=== PATIENT | female | born 1965 | race Caucasian/White ===

== ENCOUNTER 2018-08-23 11:59 | Outpatient (CLI) | payer BC ==
--- NOTE | 2018-08-23 12:31 | RAD ---
RIGHT HIP 2 VIEWS: HISTORY: Right hip pain. FINDINGS AND IMPRESSION: Mild degenerative changes right hip joint. No fracture, dislocation, or other acute process. POS: [facility]
== END 2018-08-23 12:00 | disposition home or self-care (01) ==
LOC: RAD 11:59
PROVIDERS: ATTEND Nurse Practitioner Family
DX: M25.551 Pain in right hip (principal); M16.11 Unilateral primary osteoarthritis, right hip

== ENCOUNTER 2018-08-31 10:22 | Outpatient (CLI) | payer BC ==
--- NOTE | 2018-08-31 14:04 | CT ---
CT OF THE RIGHT HIP WITHOUT CONTRAST: INDICATION: Sharp stabbing right hip pain. COMPARISON: Right hip radiograph dated 08/23/2018. FINDINGS: No acute fracture or subluxation is evident. There is mild enthesopathic change off the posterior ra diotrochanter. There is mild degenerative change of the right hip. No lymphadenopathy is evident. There are scattered calcifications within the adjacent soft tissues. IMPRESSION: 1. No acute osseous abnormality is demonstrated. 2. 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 3. 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 POS: [facility]
== END 2018-08-31 10:23 | disposition home or self-care (01) ==
LOC: BICCT 10:22
PROVIDERS: ATTEND Orthopaedic Surgery
DX: M25.551 Pain in right hip (principal); M16.11 Unilateral primary osteoarthritis, right hip; M53.3 Sacrococcygeal disorders, not elsewhere classified

== ENCOUNTER 2018-12-04 08:15 | Outpatient (CLI) | payer BC ==
[2018-12-04 09:30] VITALS: BP 120/55; TEMP 96.7
--- NOTE | 2018-12-04 11:02 | CT ---
CT lumbar spine postmyelogram HISTORY: Low back pain. Spinal stenosis lumbar region. COMPARISON: 12/07/2013 obtained from [facility] FINDINGS: Mild vascular calcifications are seen in the abdominal aorta and involving the iliac arteries. The re mainder of the limited visualized retroperitoneal structures demonstrate a grossly normal nonenhanced CT appearance. Weigher Bulker image demonstrates hypoplastic ribs at T12. Lumbar vertebral bodies will be labeled L1-L5. Agai n noted are endplate degenerative changes as well as disc degenerative changes at the L4-5 and L5-S1 levels with vacuum phenomenon present. The vertebral body heights are within normal limits. No fracture or subluxation is seen involving the lumbar spine. The conus medullaris terminates at the L1-2 level. T12-L1: There is a mild disc osteophyte complex eccentrically greater on the right resulting in sligh t effacement of the right anterolateral aspect of the thecal sac. The neural foramina do appear patent. L1-2: No significant central canal or neural foraminal narrowing is seen. L2-3: No significant central canal or neural foraminal narrowing is seen. Mild facet degenerative doyle nges are seen on the right. L3-4: There is mild loss of intervertebral disc height. There is a broad-based disc osteophyte comple x and facet degenerative changes. No significant narrowing of the central canal is present. There is mild bilateral neural foraminal narrowing greater on the left. L4-5: There is loss of intervertebral vertebral disc height with vacuum phenomenon seen in the interv ertebral disc. Broad-based disc osteophyte complex is present. There is a focus of gas seen in the right lateral aspect of the central canal which could be related to a tiny sequestered disc fragment versus gas within a right paracentral disc protrusion. This does contact the traversing right L5 nerve root in the subarticular zone at this level. This was not seen on prior study. Prominent facet hypertrophic changes are identified with gas seen in the facet joints bilaterally. There is moderate bilateral neural foraminal narrowing. The disc osteophyte complex also encroaches on the tra versing left L5 nerve root. The central spinal canal is patent. L5-S1: There is loss of vertebral disc height with vacuum phenomenon seen in the intervertebral disc. Broad-based disc osteophyte complex is present. This does encroach on the traversing bilateral S1 nerve roots. The central spinal canal is patent. Moderate bilateral neural foraminal narrowing is pre sent. IMPRESSION: 1. Disc degenerative changes predominantly in the lower lumbar spine. Moderate bilateral neural estella inal narrowing is present at the L4-5 and L5-S1 levels. 2. Focus of gas in the subarticular zone on the right at the L4-5 level which does contact and appear s to displace the traversing right L5 nerve root posteriorly. This may represent a small sequestered disc fragment or gas within a right paracentral disc protrusion.
[2018-12-04] MEDS ORDERED: Iopamidol-M 200 41% 20 ML VIAL ONE (11:05)
--- NOTE | 2018-12-04 11:20 | RAD ---
EXAM: XR Myelogram Lumbar Spine PROVIDED CLINICAL HISTORY: Low back pain. Spinal stenosis of lumbar spine. COMPARISON: 12/07/2013 obtained from [facility]. TECHNIQUE: The procedure including risks and complications were explained to the patient, and informed consent w as obtained. The patient was transported to fluoroscopy and placed in a prone position on the fluoroscopy table. An area overlying the L3-4 level was marked, and the area was meticulously prepped and draped in the usual sterile fashion. The skin and subcutaneous tissues were infiltrated with buffered 1% lidocaine for local anesthesia. A 22-gauge spinal needle was advanced into the thecal sac. The inner stylette was removed with a retu rn of clear cerebral spinal fluid. Approximately 8 mL of Isovue-M 200 contrast was instilled into the thecal sac. The inner stylette was replaced, and the needle was removed. Hemostasis was achieved with direct pressure. A dry sterile dressing was placed. Patient tolerated th e procedure well and without immediate consultation. Patient was transported to CT scanner for further imaging. Fluoroscopy: Total fluoroscopy time 0.8 minutes with total dose of 273.2 uGym2. FINDINGS: Technically successful lumbar myelogram was performed with puncture at the L3-4 level. Degenerative changes are seen at the L4-5 and L5-S1 levels with narrowing of the intervertebral disc spaces and evidence of vacuum phenomenon. Facet hypertrophic changes are seen at these levels. The vertebral body heights are within normal limits. No fracture or subluxation is identified. Views of t he lumbar spine have not significantly changed compared to the prior exam in 2013. Vascular calcifications are seen in the abdominal aorta and involving the iliac arteries. IMPRESSION: 1. Technically successful lumbar myelogram. 2. Degenerative changes in the lower lumbar spine also seen on the prior study in 2013. 3. Please see CT lumbar spine performed after this exam for further details.
--- NOTE | 2018-12-04 11:29 | RAD ---
EXAM: XR Lumbar Spine Bending Min 4V PROVIDED CLINICAL HISTORY: Spinal stenosis lumbar region. Back pain. COMPARISON: 12/05/2013 obtained from [facility] FINDINGS: T12 ribs are hypoplastic. Lumbar vertebral bodies will be numbered L1-L5. As noted on the prior exam, there are degenerative changes seen in the lower lumbar spine with loss of intervertebral disc height at the L4-5 and L5-S1 levels with associated vacuum phenomenon noted. Prominent facet hypertro phic changes are seen at these levels. No fracture or subluxation is identified. There is question of trace anterolisthesis of L4 and L5 which may be projectional. Subluxation at this level on CT lumb ar spine performed after this examination is not seen. There is no abnormal translational motion seen between the flexion-extension views. Vascular calcifications are seen in the abdominal aorta and involving the iliac arteries. IMPRESSION: Degenerative changes of the lumbar spine not significantly changed when compared to the prior exam.
== END 2018-12-04 11:20 | disposition home or self-care (01) ==
LOC: RAD 08:15
PROVIDERS: ATTEND Nurse Practitioner Family
DX: M48.062 Spinal stenosis, lumbar region with neurogenic claudication (principal); M47.816 Spondylosis without myelopathy or radiculopathy, lumbar region; M51.36 Other intervertebral disc degeneration, lumbar region; M48.07 Spinal stenosis, lumbosacral region; R93.7 Abnormal findings on diagnostic imaging of other parts of musculoskeletal system
CPT/HCPCS: 62304; 72120; 72132; Q9966

== ENCOUNTER 2020-02-26 13:11 | Outpatient (CLI) | payer BC ==
--- NOTE | 2020-02-26 13:31 | RAD ---
XR Chest Pa Lat STANDARD HISTORY: Pleuritic chest pain COMPARISON: None FINDINGS: The heart size is at upper limits of normal. The aorta is tortuous The lungs are well expanded withou t focal areas of consolidation, pneumothorax or pleural effusions. There are degenerative changes in the spine. IMPRESSION: No radiographic evidence of acute cardiopulmonary process.
== END 2020-02-26 13:12 | disposition home or self-care (01) ==
LOC: BICRAD 13:11
PROVIDERS: ATTEND Family Medicine
DX: R07.1 Chest pain on breathing (principal)
CPT/HCPCS: 36415; 71046; 80053; 80061; 83036; 85025

== ENCOUNTER 2020-03-18 11:35 | Outpatient (CLI) | payer BC ==
--- NOTE | 2020-03-18 13:23 | MMO ---
Bilateral MAMMO Bilat Screen DDI+EUD. CLINICAL HISTORY: Patient is 55 years old and is seen for screening. The patient has no family history of breast cancer. The patient has no personal history of cancer. VIEWS: The views performed were: bilateral craniocaudal with tomosynthesis and bilateral mediolateral oblique with tomosynthesis. This study has been interpreted with the assistance of computer-aided detection. MAMMOGRAM FINDINGS: There are scattered fibroglandular densities. There is a mass seen in the sub-areolar region of the left breast. In the right breast, there are no suspicious masses, calcifications or areas of architectural distortion. IMPRESSION: MASS IN THE LEFT BREAST REQUIRES ADDITIONAL EVALUATION. MAGNIFICATION VIEWS ARE RECOMMENDED. AN ULTRASOUND EXAM IS RECOMMENDED. ADDITIONAL IMAGING. THE RESULTS OF THIS EXAM WERE SENT TO THE PATIENT. ACR BI-RADS Category 0 - Incomplete: Need additional imaging evaluation. [facility] will notify the patient of the need for additional imaging services. MAMMOGRAPHY NOTE: 1. A negative mammogram report should not delay a biopsy if a dominant of clinically suspicious mass is present. 2. Approximately 10% to 15% of breast cancers are not detected by mammography. 3. Adenosis and dense breasts may obscure an underlying neoplasm. Reported by: DAVIDE RAMSAY MD Electonically Signed: [id number]
== END 2020-03-18 11:36 | disposition home or self-care (01) ==
LOC: BICMAMMO 11:35
PROVIDERS: ATTEND Family Medicine
DX: Z12.31 Encounter for screening mammogram for malignant neoplasm of breast (principal); N63.20 Unspecified lump in the left breast, unspecified quadrant
CPT/HCPCS: 77063; 77067

== ENCOUNTER 2020-03-27 10:21 | Outpatient (CLI) | payer BC ==
--- NOTE | 2020-03-27 10:46 | MMO ---
Left Breast MAMMO Unilat Diag DDI LT+EDU. CLINICAL HISTORY: Patient is 55 years old and is seen for diagnostic exam. The patient has no family history of breast cancer. The patient has no personal history of cancer. VIEWS: The views performed were: left craniocaudal spot compression with tomosynthesis; left mediolateral oblique spot compression with tomosynthesis; and left mediolateral with tomosynthesis. FILMS COMPARED: The present examination has been compared to prior imaging studies performed at [facility] on 03/18/2020 and 03/27/2020. This study has been interpreted with the assistance of computer-aided detection. MAMMOGRAM FINDINGS: There are scattered fibroglandular densities. There is an oval mass measuring 5 x 10 mm with indistinct margins seen in the anterior region of the left breast at 6 o'clock. COMPLICATED CYST VS MASS IMPRESSION: MASS IN THE LEFT BREAST IS SUSPICIOUS. AN ULTRASOUND-GUIDED BREAST BIOPSY IS RECOMMENDED. THE RESULTS OF THIS EXAM WERE SENT TO THE PATIENT. ACR BI-RADS Category 4 - Suspicious abnormality - biopsy should be considered MAMMOGRAPHY NOTE: 1. A negative mammogram report should not delay a biopsy if a dominant of clinically suspicious mass is present. 2. Approximately 10% to 15% of breast cancers are not detected by mammography. 3. Adenosis and dense breasts may obscure an underlying neoplasm. Reported by: ALEYDA HERRMANN MD Electonically Signed: [id number]
--- NOTE | 2020-03-27 11:48 | ULT ---
LEFT BREAST ULTRASOUND: HISTORY: Followup of abnormal mammographic finding. FINDINGS: In the left breast 6 o'clock position there is a somewhat poorly circumscribed hypoechoic mass 3 cm f rom the nipple 0.5 x 1.0 x 0.6 cm in size. This corresponds to the mammographic finding. This could represent a complicated cyst or circumscribed hypoechoic mass. This finding was discussed with the patient concerning short-term, 6-month followup studies versus ultrasound-guided biopsy. The patient prefers ultrasound-guided biopsy and does not want to have 6-month followup short-term surveillance. IMPRESSION: BIRADS category 4, suspicious finding. [place] somewhat complicated-appearing cyst versus hypoechoic solid mass. Ultrasound guided biopsy will be scheduled in an attempt to perform it today. The patie nt does not want to undergo 6-month short-term surveillance ultrasound. POS: [facility]
--- NOTE | 2020-03-27 12:18 | MMO ---
FILMS COMPARED: The present examination has been compared to prior imaging studies performed at [facility] on 03/18/2020 and 03/27/2020. MAMMOGRAM FINDINGS: There is a biopsy clip seen in the left breast at 6 o'clock. IMPRESSION: BIOPSY CLIP IN THE LEFT BREAST IS CONFIRMED UTILIZING POST PROCEDURE MAMMOGRAM. Reported by: YUAN BRANTLEY MD Electonically Signed: [id number]
--- NOTE | 2020-03-27 13:51 | ULT ---
ULTRASOUND-GUIDED BREAST BIOPSY LEFT: DATE: 03/27/2020 HISTORY: 55-Year-old female with heterogeneously hypoechoic lesion in inferior left breast. TECHNIQUE: Signed informed consent obtained. Breast skin prepared and draped in usual sterile fashion. Procedure performed under ultrasound guidance. 25-gauge needle used to apply buffered lidocaine superficially and deeply. 13 gauge introducer needle advanced to the edge of targeted lesion. 14 gaug e advanced through the introducer needle in coaxial fashion. Biopsy gun fired, yielding core tissue sample, which was placed in formalin. This was repeated, for a total of 2 passes. A postbiopsy clip w as deployed through the introducer needle. Introducer needle was removed. Manual compression was applied until hemostasis was achieved. Patient tolerated the procedure well. No complications. IMPRESSION: Technically successful 14 gauge core biopsy of left breast lesion x 2
== END 2020-03-27 10:22 | disposition home or self-care (01) ==
LOC: BICMAMMO 10:21
PROVIDERS: ATTEND Family Medicine
DX: N64.89 Other specified disorders of breast (principal)
CPT/HCPCS: 19083; 88305; G0279

== ENCOUNTER 2020-04-03 08:43 | Outpatient (CLI) | payer BC, OTHER ==
[2020-04-04 11:00] LABS: SARS-CoV-2 MS2 Positive; SARS-CoV-2 N Gene Negative; SARS-CoV-2 S Gene Negative; SARS-CoV-2 by NAA Not Detected (NotDetected); SARS-CoV-2 orf1ab Negative
== END 2020-04-03 08:44 | disposition home or self-care (01) ==
LOC: LABBT 08:43
PROVIDERS: ATTEND Internal Medicine
DX: K52.9 Noninfective gastroenteritis and colitis, unspecified (principal); K92.1 Melena; R10.13 Epigastric pain; Z20.828 Contact with and (suspected) exposure to other viral communicable diseases
CPT/HCPCS: 87635; U0003

== ENCOUNTER 2020-04-08 08:42 | Day surgery (SDC) | payer BC ==
[2020-04-07 12:50] VITALS: BMI 50.5
--- NOTE | 2020-04-08 12:17 | OP ---
DATE OF PROCEDURE: 04/08/2020 PROCEDURES PERFORMED: Esophagogastroduodenoscopy with biopsy and colonoscopy with biopsy. INDICATIONS FOR PROCEDURE: Chronic diarrhea, hematochezia, and epigastric pain. DESCRIPTION OF PROCEDURE: After the risks and benefits of the procedures were explained to the patient including risks of bleeding, infection, perforation, reactions to anesthesia, aspiration, and/or pain, informed consent was obtained. The patient was then taken to the endoscopy suite, where she was maneuvered into the left lateral decubitus position, followed by introduction of deep sedation via propofol and anesthesia support. Once adequate sedation was achieved, the standard gastroscope was introduced into the mouth with intubation of the esophagus, stomach, and the proximal small intestines with the findings listed below. The patient tolerated the procedure well with no immediate perioperative complications. On conclusion of the procedure, all equipment was removed and the bed was rotated 180 degrees in anticipation of the colonoscopy. Once in adequate position, a digital rectal examination was performed followed by introduction of the standard colonoscope, which was then advanced to the distal cecum with further progress, not able to be achieved due to inflammation in the distal colon (increased risk of perforation) and significant looping of the colonoscope the quality of the prep was fair to good with adequate visualization of the colonic mucosa achieved. The patient tolerated the procedure well with no immediate perioperative complications. On conclusion of the procedure, all equipment was then removed from the patient and she was transferred to Day Stay in satisfactory condition. EGD FINDINGS: Esophagus: Normal-appearing mucosa was seen in the proximal, mid, and distal esophagus. There was no evidence of erosions, ulcerations, mass lesions, or active/recent bleeding. Stomach: Mild diffuse mucosal erythema was seen throughout the entire stomach with a slight worsening in the gastric antrum. There were no other associated abnormalities with this including no evidence of erosions, ulcerations, mass lesions, or active/recent bleeding. Random biopsies were then taken from the proximal and distal stomach for evaluation of possible H. pylori. Duodenum: Normal-appearing mucosa was seen in both the duodenal bulb and second portion of the duodenum. There was no evidence of erosions, ulcerations, mass lesions, or active/recent bleeding. Multiple random biopsies were taken from both the duodenal bulb and second portion of the duodenum for evaluation of possible celiac sprue. IMPRESSION: 1. Mildly diffuse mucosal erythema seen throughout the entire stomach concerning for possible Helicobacter pylori infection. 2. Otherwise normal upper endoscopy. 3. Normal villiform appearing mucosa in the duodenum status post biopsies. COLONOSCOPY FINDINGS: Digital rectal exam: Normal findings were seen on external examination with normal sphincter tone and no masses palpated. Colon findings: The scope was only able to be advanced to the proximal ascending colon with further advancement into the cecum unable to be achieved due to significant looping of the colonoscope in addition to inflammation seen in the distal colon. The quality of the prep was fair to good with adequate visualization of the colonic mucosa achieved. Of the mucosa seen, normal-appearing mucosa was seen at the ileocecal valve as well as in the ascending colon, transverse and descending colons. Multiple biopsies were taken from both the right colon and transverse colon for microscopic evaluation. However, starting at approximately 35 cm past the anal verge and extending all the way to the anal verge itself, was significant granularity of the colonic mucosa in addition to loss of vascularity and small punctate ulcerations in a diffuse type pattern. Given the higher likelihood of ulcer colitis, multiple biopsies were then taken from the left colon from the anal verge up until 35 cm past the anal verge and placed in a specimen jar for further evaluation. Rectal retroflexion did not yield any additional abnormalities. IMPRESSION: 1. Increased granularity, loss of vascularity, and punctate ulcerations in the distal colon consistent with ulcerative colitis up to 35 cm past the anal verge. 2. Otherwise normal-appearing mucosa in the proximal colon. Also, status post biopsies for microscopic evaluation. 3. Inability to intubate the cecum secondary to increased inflammation in the distal colon and significant looping of the colonoscope. RECOMMENDATIONS: 1. Will follow up on the biopsy results with further care guided by the pathology report. 2. Would start the patient on prednisone 40 mg daily as part of a steroid taper for symptomatic relief of probable ulcer colitis given that her infectious stool studies are negative. 3. Would start the patient on mesalamine/Lialda 2.4 g daily as part of treatment for left-sided ulcerative colitis. 4. Would avoid any NSAIDs as they could further create inflammation in the distal colon. 5. Would avoid any anticoagulation for the next 48 to 72 hours given the number of biopsies taken today. 6. Would have the patient follow up in the GI clinic in 3 weeks for further evaluation. We will continue to follow. Please call with any questions. Job ID: [id number]
[2020-04-08] MEDS ORDERED: PHENYLEPHRINE-NS 100 MCG/ML 10 ML SYRINGE ONE (12:18)
[2020-04-08] MEDS ORDERED: PROPOFOL 200 MG/20 ML VIAL ONE (12:18)
[2020-04-08] MEDS ORDERED: Lidocaine 1% PF 5 ML VIAL ONE (12:18)
== END 2020-04-08 12:35 | disposition home or self-care (01) ==
LOC: SDC 08:42
PROVIDERS: ATTEND Internal Medicine
PROC: 0DBL8ZX Excision of Transverse Colon, Via Natural or Artificial Opening Endoscopic, Diagnostic (ICD-10-PCS; principal; 2020-04-08)
PROC: 0DBN8ZX Excision of Sigmoid Colon, Via Natural or Artificial Opening Endoscopic, Diagnostic (ICD-10-PCS; principal; 2020-04-08)
PROC: 0DBG8ZX Excision of Left Large Intestine, Via Natural or Artificial Opening Endoscopic, Diagnostic (ICD-10-PCS; principal; 2020-04-08)
PROC: 0DBF8ZX Excision of Right Large Intestine, Via Natural or Artificial Opening Endoscopic, Diagnostic (ICD-10-PCS; principal; 2020-04-08)
PROC: 0DB98ZX Excision of Duodenum, Via Natural or Artificial Opening Endoscopic, Diagnostic (ICD-10-PCS; principal; 2020-04-08)
PROC: 0DB68ZX Excision of Stomach, Via Natural or Artificial Opening Endoscopic, Diagnostic (ICD-10-PCS; principal; 2020-04-08)
DX: K52.9 Noninfective gastroenteritis and colitis, unspecified (principal); K92.1 Melena; K21.9 Gastro-esophageal reflux disease without esophagitis; K31.89 Other diseases of stomach and duodenum; F41.9 Anxiety disorder, unspecified; F32.9 Major depressive disorder, single episode, unspecified; E11.9 Type 2 diabetes mellitus without complications; I10 Essential (primary) hypertension; E78.00 Pure hypercholesterolemia, unspecified; Z79.899 Other long term (current) drug therapy; Z88.0 Allergy status to penicillin; Z88.2 Allergy status to sulfonamides; Z91.018 Allergy to other foods; Z87.891 Personal history of nicotine dependence
CPT/HCPCS: 88305; 88312; J2704

== ENCOUNTER 2022-03-17 20:33 | Emergency (ER) | payer BC ==
[2022-03-17] MEDS ORDERED: Morphine 4 MG/ML VIAL ONE (22:26)
== END 2022-03-17 23:05 | disposition home or self-care (01) ==
LOC: ERS 20:33
DX: S42.202A Unspecified fracture of upper end of left humerus, initial encounter for closed fracture (principal); W11.XXXA Fall on and from ladder, initial encounter
CPT/HCPCS: J2270

== ENCOUNTER → 2022-03-31 | Day surgery (SDC) | payer OTHER ==
[~2022-03-31] MED LIST: EPINEPHrine 1 MG/ML VIAL ONE; Iopamidol 300 61% 50 ML VIAL FS ONE; Lidocaine 1% MPF 2 ML VIAL ONE
== END | disposition home or self-care (01) ==
LOC: RAD 07:15
PROVIDERS: ATTEND Orthopaedic Surgery
PROC: BQ2 Imaging, Non-Axial Lower Bones, Computerized Tomography (CT Scan) (ICD-10-PCS; principal; 2022-03-31)
DX: S83.242A Other tear of medial meniscus, current injury, left knee, initial encounter (principal); M23.8X2 Other internal derangements of left knee; M71.22 Synovial cyst of popliteal space [Baker], left knee; Z88.0 Allergy status to penicillin; Z88.2 Allergy status to sulfonamides; Z91.018 Allergy to other foods
CPT/HCPCS: 27369; J0171; Q9967

== ENCOUNTER 2024-06-22 09:37 | Outpatient (CLI) | payer OTHER | END 2024-06-22 09:38 | disposition home or self-care (01) | LOC: BICMAMMO 09:37 | PROVIDERS: ATTEND Family Medicine | DX: Z12.31 Encounter for screening mammogram for malignant neoplasm of breast (principal); Z91.89 Other specified personal risk factors, not elsewhere classified | CPT/HCPCS: 77063; 77067 ==

== ENCOUNTER 2025-01-17 09:43 | Outpatient (CLI) | payer OTHER | END 2025-01-17 09:44 | disposition home or self-care (01) | LOC: BICRAD 09:43 | PROVIDERS: ATTEND Family Medicine | DX: R06.02 Shortness of breath (principal) | CPT/HCPCS: 71046 ==

== ENCOUNTER 2025-03-01 10:31 | Outpatient (CLI) | payer OTHER | END 2025-03-01 10:32 | disposition home or self-care (01) | LOC: BICCT 10:31 | PROVIDERS: ATTEND Family Medicine | DX: R06.02 Shortness of breath (principal) | CPT/HCPCS: 71250 ==